=== PATIENT | male | born 2000 | race Caucasian/White ===

== ENCOUNTER 2022-11-29 19:06 | Emergency (ER) | payer SELFPAY ==
[2022-11-29 19:23] VITALS: BP 147/95; PULSE 112; RESP 14; TEMP 37.6; O2SAT 94; BMI 31.1
--- NOTE | 2022-11-29 20:11 | XR_ITS ---
PROCEDURE INFORMATION: Exam: XR Right Hand Exam date and time: 11/29/2022 8:06 PM Age: 22 years old Clinical indication: Pain; Hand; Right TECHNIQUE: Imaging protocol: Radiologic exam of the right hand. Views: 3 or more views. COMPARISON: No relevant prior studies available. FINDINGS: Bones/joints: No acute fracture or dislocation. Soft tissues: Normal. IMPRESSION: No acute fracture or dislocation.
--- NOTE | 2022-11-29 20:42 | HMH.EDGENADL ---
Discharge Plan Disposition Patient Disposition: Home, Self-Care Prescriptions Prescriptions: New diclofenac potassium 50 mg tablet 50 mg PO Q8H PRN (Reason: pain) Qty: 60 0RF Referrals Follow up/Referrals: Provider,Referral, [Primary Care Provider] - See instructions Activity Restrictions/Add. Instructions Additional Instructions/Restrictions: Follow-up with hand clinic call [phone] for appointment. [email or web address] Clinical Impressions Clinical Impression: Hand pain Discharge ED Provider: Jeremy Lam General Adult HPI General Chief complaint: PAIN Stated complaint: RT hand pain Time Seen by Provider: 11/29/22 20:00 Mode of Arrival: Ambulatory Source of Information: Patient and Relative Limitations: No Limitations Description of Symptoms (Recalled from ER Triage Doc. by RN): 22 yo male presents with complaints of chronic pain that has continued without ceasing since an old injury at [employer] several months ago . Story reported that his right hand was smashed between two objects that were metal, and he subsequently had to go to PT twice weekly for rehab following. Patient denies any surgery intervention. Patient is able to produce full AROM with his arm/hand without increasing or reproducing new pain. States he doesn't leave around here and was just staying with his relative and thought he would 'come in' for another eval. History of Present Illness HPI narrative: 22 yo M presents with 3 months of right hand pain, he smashed his right hand between 2 metal objects and then did PT but it is still hurting with movement of the hand. He is concerned something was missed No other injuries. Related Data Previous Rx's Medication Instructions Recorded diclofenac potassium 50 mg tablet 50 mg PO Q8H PRN pain #60 tabs 11/29/22 Allergies Allergy/AdvReac Type Severity Reaction Status Date / Time NO KNOWN ALLERGIES Allergy Uncoded 09/24/17 15:09 [facility] Disclaimer: The information contained in this section may have been updated after the patient was seen, as this information can be updated by other users. Social History Smoking Status: Never smoker alcohol intake: former current occupational status: employed Travel in the last 8 weeks: Inside the [place] ROS Obtained: Yes All systems reviewed & no additional complaints except as documented Constitutional Constitutional: Denies excessive sweating and Denies headache(s) ENT Ears, Nose, Mouth, and Throat: Denies dizziness, Denies headache(s) and Denies tongue swelling Cardiovascular Cardiovascular: Denies leg ulcers Respiratory Respiratory: Denies cough Gastrointestinal Gastrointestingal: Denies reflux Genitourinary Male Genitourinary: Denies flank pain Musculoskeletal Musculoskeletal: Denies joint swelling Integumentary/Breasts Skin/Breast: Denies redness and Denies furuncle Neurologic Neurologic: Denies dizziness and Denies headache(s) Endocrine Endocrine: Denies excessive sweating Allergic/Immunologic Allergic/Immunologic: Denies tongue swelling and Denies urticaria Physical Exam General General appearance: alert and in no apparent distress Eye Eye exam: Present PERRL and EOMI ENT ENT exam: Present normal exam and normal oropharynx Neck Neck exam: Present normal inspection Chest Chest inspection: Present symmetric chest wall rise Respiratory Respiratory exam: Present normal lung sounds bilaterally; Absent respiratory distress Cardiovascular Cardiovascular exam: Present regular rate and normal rhythm Abdominal Exam Abdominal exam: Present soft; Absent distention, tenderness, guarding, rebound, Justice's sign or tenderness at McBurney's Point Rectal Exam Rectal exam: Present deferred Extremities Exam Extremities exam: Present other (right hand mid hand tenderness, no swelling or deformity. 2 + pulses, N/v intact) Back Exam Back exam: Present normal inspection Neurological Exam Neurological
--- NOTE | 2022-11-29 21:51 | PC.NURSE ---
CALLED TO CHECK ON STATUS. SPOKE WITH ALEXI, STATED RADIOLOGIST IS JUST NOW GETTING TO IT.FAMILY AND PATIENT UPDATED
[2022-11-29 22:12] VITALS: BP 135/87; PULSE 90; RESP 16; TEMP 37.2; O2SAT 97
== END 2022-11-29 22:20 | disposition home or self-care (01) ==
PROVIDERS: Emergency Provider Student in an Organized Health Care Education/Training Program
DX: M79.641 Pain in right hand (principal); G89.29 Other chronic pain
CPT/HCPCS: 73130; 99283; 99284

== ENCOUNTER 2023-06-26 10:56 | Emergency (ER) | payer MEDICAID, SELFPAY ==
[2023-06-26 11:10] VITALS: BP 158/89; PULSE 100; RESP 18; TEMP 36.9; O2SAT 96; BMI 36.7
--- NOTE | 2023-06-26 11:23 | EXP.UTC ---
Discharge Plan Disposition Patient Disposition: Home, Self-Care Condition: Good Prescriptions Prescriptions: No Action diclofenac potassium 50 mg tablet 50 mg PO Q8H PRN (Reason: pain) Qty: 60 0RF Referrals Follow up/Referrals: Provider,Referral, MD [Primary Care Provider] - See instructions Activity Restrictions/Add. Instructions Additional Instructions/Restrictions: *Monitor Temp, Over the counter Motrin or Tylenol as directed/as needed Tylenol every 4 hours and Motrin every 6 hours (as long as your family doctor has told you that you can take it) for fever or pain. and straight to ER if unable to lower temp less than 101.0 after medication given *Warm salt water gargles may help to soothe the throat *Throat Lozenges? *Warm fluids like tea with honey may help to soothe the throat? *Sleep elevated Follow up IMMEDIATELY for new or worsening symptoms or no Noticeable improvement over the next 48-72 hours. 911 for difficulty breathing or swallowing You were tested for today for Upper Respiratory Panel with COVID19 your test result should be back in the next 24 you may check your results on the [facility] [employer] [facility] Portal if COVID positive you must then Quarantine at home for 5 days before returning to work or school Clinical Impressions Clinical Impression: Exposure to COVID-19 virus Stand Alone Forms Stand Alone Forms: Work/School Release Instructions Patient Instructions: COVID-19 Viral Test, DI for COVID-19 (Suspected or Confirmed ) Discharge ED Provider: Tri Kline [facility] HPI General Stated complaint: SOA,achey,weakness,cough Mode of Arrival: Ambulatory Source of Information: Patient Limitations: No Limitations Time Seen by Provider: 06/26/23 11:23 Description of Symptoms (Recalled from Triage Doc. by RN): exposed to covid HEENT Symptoms (Recalled from RN notes): Yes Resp Symptoms (Recalled from RN notes): No Skin Symptoms (Recalled from RN notes): No MS Symptoms (Recalled from RN notes): No Functional Status (Recalled from RN notes): n/a History of Present Illness Provider Complaint: Patient states that he was recently around someone that tested positive for COVID and he has been feeling achy and chilling so he wanted to get tested Related Data Previous Rx's Medication Instructions Recorded diclofenac potassium 50 mg tablet 50 mg PO Q8H PRN pain #60 tabs 11/29/22 Allergies Allergy/AdvReac Type Severity Reaction Status Date / Time NO KNOWN ALLERGIES Allergy Unknown Uncoded 06/26/23 11:23 Worker's Comp Is this a Worker's Comp case?: No [facility] Disclaimer: The information contained in this section may have been updated after the patient was seen, as this information can be updated by other users. Social History Smoking Status: Never smoker alcohol intake: former current occupational status: employed Travel in the last 8 weeks: Inside the [place] ROS Obtained: Yes All systems reviewed & no additional complaints except as documented and Yes Systems reviewed as appropriate & no additional complaints except as documented Constitutional Constitutional: Reports system reviewed and no additional complaints, except as documented, Reports as per HPI, Reports body ache and Reports chills ENT Ears, Nose, Mouth, and Throat: Reports system reviewed and no additional complaints, except as documented and Reports as per HPI Cardiovascular Cardiovascular: Reports system reviewed and no additional complaints, except as documented and Reports as per HPI Respiratory Respiratory: Reports system reviewed and no additional complaints, except as documented and Reports as per HPI Gastrointestinal Gastrointestingal: Reports system reviewed and no additional complaints, except as documented and as per HPI Physical Exam General General appearance: alert and in no apparent distress ENT ENT exam: Present mucou
[2023-06-26 11:39] VITALS: BP 141/70; PULSE 86; RESP 18; TEMP 36.6; O2SAT 95
== END 2023-06-26 11:39 | disposition home or self-care (01) ==
PROVIDERS: Emergency Provider Nurse Practitioner
DX: M79.18 Myalgia, other site (principal); Z20.822 Contact with and (suspected) exposure to COVID-19
CPT/HCPCS: 87635; 99203; 99212; G0463

== ENCOUNTER 2023-07-05 11:37 | Emergency (ER) | payer MEDICAID, SELFPAY ==
[2023-07-05 11:39] VITALS: BP 140/86; PULSE 101; RESP 16; TEMP 36.9; O2SAT 98; BMI 33.9
[2023-07-05 12:17] LABS: Coronavirus 19, PCR Not Detected (NotDetected); Influenza A, PCR Not Detected (NotDetected); Influenza B, PCR Not Detected (NotDetected)
[2023-07-05 12:25] VITALS: BP 124/88; PULSE 93; O2SAT 97
[2023-07-05 12:30] VITALS: BP 132/76; PULSE 86; O2SAT 96
--- NOTE | 2023-07-05 12:45 | HMH.EDGENADL ---
Discharge Plan Disposition Patient Disposition: Home, Self-Care Condition: Good Prescriptions Prescriptions: New ondansetron 4 mg tablet,disintegrating 4 mg PO Q8H PRN (Reason: nausea and vomiting) 4 Days Qty: 12 0RF No Action diclofenac potassium 50 mg tablet 50 mg PO Q8H PRN (Reason: pain) Qty: 60 0RF Referrals Follow up/Referrals: Damaris Mcclellan MD [Primary Care Provider] - See instructions Activity Restrictions/Add. Instructions Additional Instructions/Restrictions: You were evaluated in the emergency department today. Please slat pickler your prescription at the pharmacy to take as needed for nausea and vomiting. Take Tylenol and ibuprofen at home as needed for pain and fever. Hydrate is much as possible. Eat a bland diet until your symptoms have resolved. Return to the emergency department for any new or worsening symptoms. Clinical Impressions Clinical Impression: Acute viral syndrome, Gastroenteritis Stand Alone Forms Stand Alone Forms: Work/School Release Instructions Patient Instructions: DI for Viral Upper Respiratory Infection -- Adult, DI for Diarrhea and Traveler's Diarrhea -- Adult, DI for Nausea -- Adult Discharge ED Provider: Dorina Cummings General Adult HPI General Chief complaint: Nausea/Vomiting/Diarrhea Stated complaint: nausea, vomiting, diarrhea, sore throat, soa Time Seen by Provider: 07/05/23 11:52 Mode of Arrival: Ambulatory Source of Information: Patient Limitations: No Limitations Description of Symptoms (Recalled from ER Triage Doc. by RN): Patient reports N/V/D, sinus drainage and SOB for approx 2 days. History of Present Illness HPI narrative: This patient is a 23-year-old male with past medical history of asthma presenting to the emergency department for evaluation with concern for 2 days of sinus congestion, drainage, sore throat, cough, nausea, vomiting, and diarrhea. He reports that he has had a lot of trouble keeping anything down. The emesis is nonbloody and nonbilious and diarrhea is nonbloody. He denies any significant abdominal pain or other concerns. He does note dysuria on review of systems. Related Data Previous Rx's Medication Instructions Recorded diclofenac potassium 50 mg tablet 50 mg PO Q8H PRN pain #60 tabs 11/29/22 ondansetron 4 mg disintegrating 4 mg PO Q8H PRN nausea and 07/05/23 tablet vomiting 4 days #12 tabs Allergies Allergy/AdvReac Type Severity Reaction Status Date / Time NO KNOWN ALLERGIES Allergy Unknown Uncoded 06/26/23 11:23 [facility] Disclaimer: The information contained in this section may have been updated after the patient was seen, as this information can be updated by other users. Social History Smoking Status: Never smoker alcohol intake: former current occupational status: employed Travel in the last 8 weeks: [place] the [place] ROS Obtained: Yes All systems reviewed & no additional complaints except as documented Physical Exam General General appearance: alert and in no apparent distress Head Head exam: atraumatic and normocephalic Eye Eye exam: Present normal appearance, PERRL and EOMI ENT ENT exam: Present normal exam, normal oropharynx, mucous membranes moist and normal external ear exam Neck Neck exam: Present normal inspection, full ROM and trachea midline; Absent tenderness Chest Chest inspection: Present normal inspection and symmetric chest wall rise; Absent tenderness Respiratory Respiratory exam: Present normal lung sounds bilaterally; Absent respiratory distress, wheezes, stridor or accessory muscle use Cardiovascular Cardiovascular exam: Present regular rate and normal rhythm Abdominal Exam Abdominal exam: Present soft; Absent distention, tenderness or guarding Extremities Exam Extremities exam: Present normal inspection, full ROM and normal capillary refill; Absent tenderness or edema Back Exam Back exam: Present normal
[2023-07-05 12:51] LABS: Microscopic, Urine URINE MICROSCOPIC (MICROSCOPIC)
[2023-07-05 13:02] LABS: Appearance,Urine CLEAR (Clear); Bilirubin,Urine Negative (Negative); Blood, Urine Negative (Negative); Color,Urine YELLOW (Yellow); Glucose,Urine (UA) Negative (Negative); Ketones,Urine Negative (Negative); Leukocyte Esterase,Urine Negative (Negative); Nitrate,Urine Negative (Negative); Protein,Urine Negative (Negative); Specific Gravity, Urine 1.025 (1.005-1.030); Urobilinogen,Urine 0.2 EU/dl (0.2)
[2023-07-05 13:18] LABS: Bacteria,Urine Trace /lpf
[2023-07-05 13:45] VITALS: BP 132/76; PULSE 86; RESP 16; TEMP 36.9; O2SAT 96
== END 2023-07-05 13:47 | disposition home or self-care (01) ==
PROVIDERS: Emergency Provider Emergency Medicine; PCP Internal Medicine
DX: K52.9 Noninfective gastroenteritis and colitis, unspecified (principal); B34.9 Viral infection, unspecified; R06.02 Shortness of breath; J45.909 Unspecified asthma, uncomplicated
CPT/HCPCS: 81001; 87636; 99283

== ENCOUNTER 2023-09-06 16:37 | Emergency (ER) | payer MEDICAID, SELFPAY ==
[2023-09-06 16:40] VITALS: BP 153/93; PULSE 89; RESP 19; TEMP 36.9; O2SAT 98; BMI 35.2
--- NOTE | 2023-09-06 16:44 | XR_ITS ---
PROCEDURE INFORMATION: Exam: XR Chest Exam date and time: 09/06/2023 4:55 PM Age: 23 years old Clinical indication: Cough TECHNIQUE: Imaging protocol: Radiologic exam of the chest. Views: 1 view. COMPARISON: No relevant prior studies available. FINDINGS: Lungs: Unremarkable. No consolidation. Pleural spaces: Unremarkable. No pleural effusion. No pneumothorax. Heart/Mediastinum: Unremarkable. No cardiomegaly. Bones/joints: Unremarkable. IMPRESSION: No acute findings.
--- NOTE | 2023-09-06 16:44 | HMH.EDGENADL ---
Discharge Plan Disposition Patient Disposition: Home, Self-Care Condition: Good Prescriptions Prescriptions: New benzonatate 100 mg capsule 100 mg PO BID PRN (Reason: cough) 5 Days Qty: 10 0RF No Action diclofenac potassium 50 mg tablet 50 mg PO Q8H PRN (Reason: pain) Qty: 60 0RF ondansetron 4 mg tablet,disintegrating 4 mg PO Q8H PRN (Reason: nausea and vomiting) 4 Days Qty: 12 0RF Referrals Follow up/Referrals: Provider,Referral, MD [Primary Care Provider] - See instructions Clinical Impressions Clinical Impression: Acute viral syndrome Instructions Patient Instructions: DI for Viral Syndrome Discharge ED Provider: Cindy Chand General Adult HPI General Stated complaint: cough, sore throat Time Seen by Provider: 09/06/23 16:41 History of Present Illness HPI narrative: 23-year-old male with no significant past medical history who comes into the with complaints of cough and chest pain. Patient notes that since Saturday, he has been having a dry cough, sore throat, body aches, headaches. Patient notes that he is also congested and feels as if the congestion is deeper down in his lungs thus he cannot cough up anything. Patient denies any shortness of breath. Patient decided come into the ED due to persistent cough and lower chest pain. Patient denies any fevers, chills, nausea, vomiting. Related Data Previous Rx's Medication Instructions Recorded diclofenac potassium 50 mg tablet 50 mg PO Q8H PRN pain #60 tabs 11/29/22 ondansetron 4 mg disintegrating 4 mg PO Q8H PRN nausea and 07/05/23 tablet vomiting 4 days #12 tabs benzonatate 100 mg capsule 100 mg PO BID PRN cough 5 days #10 09/06/23 caps Allergies Allergy/AdvReac Type Severity Reaction Status Date / Time NO KNOWN ALLERGIES Allergy Unknown Uncoded 06/26/23 11:23 [facility] Disclaimer: The information contained in this section may have been updated after the patient was seen, as this information can be updated by other users. Social History Smoking Status: Never smoker alcohol intake: former current occupational status: employed Travel in the last 8 weeks: [place] the [place] ROS Obtained: Yes All systems reviewed & no additional complaints except as documented Physical Exam General General appearance: alert and in no apparent distress Head Head exam: atraumatic, normocephalic and normal inspection Eye Eye exam: Present normal appearance, PERRL and EOMI; Absent scleral icterus or nystagmus ENT ENT exam: Present normal exam, mucous membranes moist and normal external ear exam Neck Neck exam: Present normal inspection, full ROM and trachea midline Chest Chest inspection: Present normal inspection and symmetric chest wall rise; Absent tenderness Respiratory Respiratory exam: Present normal lung sounds bilaterally; Absent respiratory distress, wheezes or accessory muscle use Cardiovascular Cardiovascular exam: Present regular rate, normal rhythm and normal heart sounds Abdominal Exam Abdominal exam: Present soft; Absent distention, tenderness, guarding, rebound, rigidity, trauma, ascites or pulsatile mass exam: Present deferred Extremities Exam Extremities exam: Present normal inspection and full ROM; Absent tenderness Back Exam Back exam: Present normal inspection and full ROM; Absent tenderness Neurological Exam Neurological exam: Present alert, oriented X3, normal gait and motor sensory deficit Psychiatric Psychiatric exam: Present normal affect and normal mood Skin Skin exam: Present warm, dry and normal color Medical Decision Making Medical Records Medical records reviewed: Yes I reviewed the patient's medical records. Tl Inquiry Pt receiving controlled substance: No Lab Data Lab results reviewed: Yes I reviewed the patient's lab results. Lab Results 09/06/23 16:45: SARS-CoV-2 (PCR) Not detected, Influenza A Untype (PCR) Not d
[2023-09-06 16:51] LABS: Coronavirus 19, PCR Not Detected (NotDetected); Influenza A, PCR Not Detected (NotDetected); Influenza B, PCR Not Detected (NotDetected)
[2023-09-06 17:43] VITALS: BP 142/80; PULSE 89; RESP 16; TEMP 36.9; O2SAT 98
== END 2023-09-06 17:45 | disposition home or self-care (01) ==
PROVIDERS: Emergency Provider Emergency Medicine
DX: R07.9 Chest pain, unspecified (principal); R05.9 Cough, unspecified; J02.9 Acute pharyngitis, unspecified; B34.9 Viral infection, unspecified
CPT/HCPCS: 71045; 87636; 99284

== ENCOUNTER 2023-10-10 17:50 | Emergency (ER) | payer MEDICAID, SELFPAY ==
[2023-10-10 17:51] VITALS: BP 131/84; PULSE 80; RESP 18; TEMP 36.7; O2SAT 97; BMI 35.2
--- NOTE | 2023-10-10 18:08 | XR_ITS ---
PROCEDURE INFORMATION: Exam: XR Chest Exam date and time: 10/10/2023 6:07 PM Age: 23 years old Clinical indication: Cough TECHNIQUE: Imaging protocol: Radiologic exam of the chest. Views: 2 views. COMPARISON: CR XR CHEST PORTABLE 09/06/2023 4:55 PM FINDINGS: Lungs: No evidence of acute airspace consolidation. No pulmonary edema. Pleural spaces: No significant pleural effusion. No pneumothorax. Heart/Mediastinum: Cardiomediastinal silouhette is within normal limits. Bones/joints: No evidence of acute osseous abnormality. IMPRESSION: No acute findings.
--- NOTE | 2023-10-10 18:14 | HMH.EDGENADL ---
Discharge Plan Disposition Patient Disposition: Home, Self-Care Prescriptions Prescriptions: New benzonatate 100 mg capsule 100 mg PO TID PRN (Reason: cough) 5 Days Qty: 20 0RF ondansetron 4 mg tablet,disintegrating 4 mg PO Q6H PRN (Reason: nausea and vomiting) 5 Days Qty: 20 0RF No Action diclofenac potassium 50 mg tablet 50 mg PO Q8H PRN (Reason: pain) Qty: 60 0RF ondansetron 4 mg tablet,disintegrating 4 mg PO Q8H PRN (Reason: nausea and vomiting) 4 Days Qty: 12 0RF benzonatate 100 mg capsule 100 mg PO BID PRN (Reason: cough) 5 Days Qty: 10 0RF Referrals Follow up/Referrals: Damaris Mcclellan MD [Primary Care Provider] - See instructions Clinical Impressions Clinical Impression: Acute viral syndrome Stand Alone Forms Stand Alone Forms: Work/School Release Discharge ED Provider: Jeremy Lam General Adult HPI General Chief complaint: Upper Respiratory Infection Stated complaint: nausea, cog, SOA, vomiting. fever Time Seen by Provider: 10/10/23 18:04 Mode of Arrival: Ambulatory Source of Information: Patient Limitations: No Limitations Description of Symptoms (Recalled from ER Triage Doc. by RN): Patient reports fever, chest congestion and nausea starting yesterday. States he has vomited one time today. History of Present Illness HPI narrative: Patient is a 23-year-old male who was diagnosed with asthma as a child but has not had an asthma exacerbation for many years and is not on any controller medications presents today with multiple complaints. States has had congestion for several days starting at the beginning the week now has some cough some chest congestion little difficulty breathing and some chest pain associated with coughing. Denies any exertional chest pain radiation diaphoresis or any current symptoms. Also had some nausea and vomiting. No wheezing. Related Data Previous Rx's Medication Instructions Recorded diclofenac potassium 50 mg tablet 50 mg PO Q8H PRN pain #60 tabs 11/29/22 ondansetron 4 mg disintegrating 4 mg PO Q8H PRN nausea and 07/05/23 tablet vomiting 4 days #12 tabs benzonatate 100 mg capsule 100 mg PO BID PRN cough 5 days #10 09/06/23 caps benzonatate 100 mg capsule 100 mg PO TID PRN cough 5 days #20 10/10/23 caps ondansetron 4 mg disintegrating 4 mg PO Q6H PRN nausea and 10/10/23 tablet vomiting 5 days #20 tabs Allergies Allergy/AdvReac Type Severity Reaction Status Date / Time NO KNOWN ALLERGIES Allergy Unknown Uncoded 06/26/23 11:23 [facility] Disclaimer: The information contained in this section may have been updated after the patient was seen, as this information can be updated by other users. Social History Smoking Status: Never smoker alcohol intake: former current occupational status: employed Travel in the last 8 weeks: Inside the [place] ROS Obtained: Yes All systems reviewed & no additional complaints except as documented Physical Exam General General appearance: alert Respiratory Respiratory exam: Present normal lung sounds bilaterally; Absent respiratory distress or wheezes Cardiovascular Cardiovascular exam: Present regular rate and normal rhythm Neurological Exam Neurological exam: Present alert and oriented X3 Medical Decision Making Tl Inquiry Pt receiving controlled substance: No Vital Signs: 10/10/23 17:51 10/10/23 18:38 Temperature 98.1 F Temperature Source Oral Pulse Rate 89 Pulse Rate [Right] 80 Respiratory Rate 18 Blood Pressure 124/78 Blood Pressure [Right Arm] 131/84 Blood Pressure Mean [Right Arm] 99 Blood Pressure Source [Right Arm] Automatic Cuff 02 Sat by Pulse Oximetry 97 97 Oxygen Delivery Method Room Air Room Air Lab Data Lab results reviewed: Yes I reviewed the patient's lab results. Lab Results 10/10/23 17:55: SARS-CoV-2 (PCR) Not detected, Influenza A Untype (PCR) Not detected, Influenza Type B (PCR) Not detected Orders (Tests/Meds): ED MEDICATIONS Discontinued Medications Generic Name Dose Route Start Last Admin Trade Name Freq PRN Reason Stop Dose Admin Ibuprofen 800 mg 10/10/23 18:09 10/10/23 18:16 Ibuprofen 400 Mg Tablet PO 10/10/23 18:10 800 mg ONCE ONE Administration Ondansetron HCl 4 mg 10/10/23 18:08 10/10/23 18:16 Ondansetron 4mg Odt SL 10/10/23 18:09 4 mg ONCE ONE Administration ORDERS Category Date Time Status XR chest 2V Stat Exams 10/10/23 18:08 Completed Rapid PCR Covid and Flu A/B Stat Lab 10/10/23 17:55 Completed Medical Decision Narrative: Very well-appearing 23-year-old male with above history and physical completely benign and objectively normal physical exam. This is consistent with a viral syndrome we will check for COVID and flu. Given the fact that he is having similar chest discomfort with coughing we will get a chest x-ray to make sure he does not have an underlying pneumonia. This is not consistent with myocarditis acute coronary syndrome acute myocardial injury etc. Will hold off on labs for the time being. He took DayQuil earlier today and will give him ibuprofen and Zofran and reassess. Reassessment 7:56 PM patient feeling significantly better chest x-ray performed which I personally interpreted which shows no acute cardiopulmonary emergency. COVID and flu are negative. This is consistent with alternative viral etiology. Zofran and benzonatate were prescribed to his pharmacy return precautions discussed he was discharged in improved and stable condition. Critical Care Critical Care Time Critical Care Time: No
[2023-10-10] MEDS: IBUPROFEN 400 MG TABLET 800 MG PO (18:16)
[2023-10-10] MEDS: ONDANSETRON 4MG ODT 4 MG SL (18:16)
--- NOTE | 2023-10-10 18:16 | PC.NURSE ---
Patient to RAD
[2023-10-10 18:38] VITALS: BP 124/78; PULSE 89; O2SAT 97
[2023-10-10 19:16] LABS: Coronavirus 19, PCR Not Detected (NotDetected); Influenza A, PCR Not Detected (NotDetected); Influenza B, PCR Not Detected (NotDetected)
[2023-10-10 20:00] VITALS: BP 137/78; PULSE 77; RESP 18; TEMP 36.7
== END 2023-10-10 20:02 | disposition home or self-care (01) ==
PROVIDERS: Emergency Provider Student in an Organized Health Care Education/Training Program; PCP Internal Medicine
DX: R50.9 Fever, unspecified (principal); R11.0 Nausea; B34.9 Viral infection, unspecified
CPT/HCPCS: 71046; 87636; 99283

== ENCOUNTER 2024-01-13 13:01 | Emergency (ER) | payer MEDICAID, SELFPAY ==
[2024-01-13 13:02] VITALS: BP 145/97; PULSE 101; RESP 18; TEMP 36.9; O2SAT 100; BMI 35.2
[2024-01-13 13:11] VITALS: BP 145/97; PULSE 98; O2SAT 98
--- NOTE | 2024-01-13 13:16 | XR_ITS ---
FINAL REPORT CLINICAL HISTORY: soa FINDINGS: A single portable view of the chest was obtained. The heart size and pulmonary vascularity are within normal limits. The mediastinum is within normal limits. No acute pulmonary abnormality is identified. The bony thorax is intact. IMPRESSION: No active cardiopulmonary disease. Reviewed, Interpreted and Dictated by Deep Kinsey III, MD Transcribed by Evelina Phillip Authenticated and . [facility]
--- NOTE | 2024-01-13 13:18 | ED_ITS ---
Discharge Plan Disposition Patient Disposition: Home, Self-Care Condition: Good Prescriptions Prescriptions: New ondansetron 4 mg tablet,disintegrating 4 mg PO Q8H PRN (Reason: nausea and vomiting) 4 Days Qty: 12 0RF amoxicillin 875 mg tablet 875 mg PO BID 10 Days Qty: 20 0RF No Action diclofenac potassium 50 mg tablet 50 mg PO Q8H PRN (Reason: pain) Qty: 60 0RF ondansetron 4 mg tablet,disintegrating 4 mg PO Q8H PRN (Reason: nausea and vomiting) 4 Days Qty: 12 0RF benzonatate 100 mg capsule 100 mg PO BID PRN (Reason: cough) 5 Days Qty: 10 0RF benzonatate 100 mg capsule 100 mg PO TID PRN (Reason: cough) 5 Days Qty: 20 0RF ondansetron 4 mg tablet,disintegrating 4 mg PO Q6H PRN (Reason: nausea and vomiting) 5 Days Qty: 20 0RF Referrals Follow up/Referrals: Provider,Referral, MD [Referring] - See instructions Activity Restrictions/Add. Instructions Additional Instructions/Restrictions: You were seen in the ED today due to COVID-19. You also have an ear infection. Please take antibiotics as prescribed. Prescription for Zofran for nausea has been provided. Take Tylenol and ibuprofen at home for fever or pain. Follow-up with your primary care provider. Return to the ED if symptoms worsen or if new concerning symptoms arise. Thank you. Clinical Impressions Clinical Impression: COVID-19 Otitis media Qualifiers: Otitis media type: suppurative Chronicity: acute Laterality: left Recurrence: n on-recurrent Spontaneous tympanic membrane rupture: without spontaneous rupture Qualified Code(s): H66.002 - Acute suppurative otitis media without spontaneous rupture of ear drum, left ear Instructions Patient Instructions: Middle Ear Infection, DI for COVID-19 (Suspected or Confirmed ) Discharge ED Provider: Gadiel Gallegos General Adult HPI General Chief complaint: Upper Respiratory Infection Stated complaint: abd pain, congestion Time Seen by Provider: 01/13/24 13:11 Mode of Arrival: Ambulatory Source of Information: Patient Limitations: No Limitations Description of Symptoms (Recalled from ER Triage Doc. by RN): PATIENT STATES HE STARTED FEELING BAD YESTERDAY WITH NAUSEA, CONGESTION, AND LIGHTHEADED. DENIES VOMITING, DIARRHEA, OR FEVERS. History of Present Illness HPI narrative: Patient is an otherwise healthy 23-year-old male presenting due to congestion, nausea, cough. Patient's aunt is present to provide history. Patient reports symptoms began yesterday. States he has had sinus drainage, sore throat, nausea and nonproductive cough. Denies any chest pain, abdominal pain, vomiting. States he did have subjective fevers yesterday. Denies any body aches or joint pain. States he has been getting lightheaded when he stands for more than 15 to 20 minutes at a time. He is unsure of any sick contacts. Related Data Previous Rx's Medication Instructions Recorded diclofenac potassium 50 mg tablet 50 mg PO Q8H PRN pain #60 tabs 11/29/22 ondansetron 4 mg disintegrating 4 mg PO Q8H PRN nausea and 07/05/23 tablet vomiting 4 days #12 tabs benzonatate 100 mg capsule 100 mg PO BID PRN cough 5 days #10 09/06/23 caps benzonatate 100 mg capsule 100 mg PO TID PRN cough 5 days #20 10/10/23 caps ondansetron 4 mg disintegrating 4 mg PO Q6H PRN nausea and 10/10/23 tablet vomiting 5 days #20 tabs amoxicillin 875 mg tablet 875 mg PO BID 10 days #20 tabs 01/13/24 ondansetron 4 mg disintegrating 4 mg PO Q8H PRN nausea and 01/13/24 tablet vomiting 4 days #12 tabs Allergies Allergy/AdvReac Type Severity Reaction Status Date / Time No Known Drug Allergies AdvReac Unknown Verified 10/24/23 14:16 allergy reaction [facility] Disclaimer: The information contained in this section may have been updated after the patient was seen, as this information can be updated by other users. Social History Smoking Status: Never smoker alcohol intake: former current occupational status: employed Travel in the last 8 weeks: Inside the [place] ROS Obtained: Yes All systems reviewed & no additional complaints except as documented Constitutional Constitutional: Reports fatigue and Reports fever(s) ENT Ears, Nose, Mouth, and Throat: Reports nasal discharge, Reports sinus pressure and Reports sore throat Respiratory Respiratory: Reports shortness of breath and Reports non-productive cough Gastrointestinal Gastrointestingal: Reports nausea Endocrine Endocrine: Reports fatigue Physical Exam General General appearance: alert and in no apparent distress Head Head exam: atraumatic, normocephalic and normal inspection Eye Eye exam: Present normal appearance, PERRL and EOMI ENT ENT exam: Present normal exam, mucous membranes moist, normal external ear exam and other (Posterior oropharyngeal erythema, edema, exudate.); Absent normal oropharynx or TM's normal bilaterally (Left TM purulent effusion, bulging, erythema.) Neck Neck exam: Present normal inspection, full ROM, trachea midline and other (Tender cervical lymphadenopathy.); Absent meningismus or lymphadenopathy Chest Chest inspection: Present normal inspection and symmetric chest wall rise; Absent tenderness Respiratory Respiratory exam: Present normal lung sounds bilaterally; Absent respiratory distress Cardiovascular Cardiovascular exam: Present regular rate and normal rhythm; Absent JVD Abdominal Exam Abdominal exam: Present soft and normal bowel sounds; Absent distention, tenderness or guarding Extremities Exam Extremities exam: Present normal inspection, full ROM and normal capillary refill; Absent calf tenderness Back Exam Back exam: Present normal inspection; Absent tenderness Neurological Exam Neurological exam: Present alert and oriented X3 Psychiatric Psychiatric exam: Present normal affect and normal mood Skin Skin exam: Present warm, dry, intact and normal color Lymphatic Lymphatic Findings: no adenopathy Medical Decision Making Tl Inquiry Pt receiving controlled substance: No Vital Signs: 01/13/24 13:02 Temperature 98.5 F Temperature Source Oral Pulse Rate [Right] 101 H Respiratory Rate 18 Blood Pressure [Right Arm] 145/97 H Blood Pressure Mean [Right Arm] 113 Blood Pressure Source [Right Arm] Automatic Cuff 02 Sat by Pulse Oximetry 100 Oxygen Delivery Method Room Air Lab Data Lab Results 01/13/24 13:16: Sodium 140, Potassium 3.8, Chloride 101, Carbon Dioxide 32 H, Anion Gap 10.8, BUN 9, Creatinine 0.90, Estimated Creat Clear 215, Estimated GFR 106, Est GFR ( Amer) 128, Glucose 96, Calcium 9.7, Total Bilirubin 1.0, AST 32, ALT 26, Alkaline Phosphatase 65, Total Protein 8.0, Albumin 4.8, Globulin 3.2, Albumin/Globulin Ratio 1.5, Lipase 82, SARS-CoV-2 (PCR) Detected A , Influenza A Untype (PCR) Not detected, Influenza Type B (PCR) Not detected 01/13/24 13:28: WBC 6.6, RBC 5.69, Hgb 15.8, Hct 48.4, MCV 85.1, MCH 27.8, MCHC 32.6, RDW 13.4, Plt Count 284, MPV 8.3, Neut % (Auto) 59.2, Lymph % (Auto) 20.6, [place] % (Auto) 17.2 H, Eos % (Auto) 0.3, Baso % (Auto) 2.8 H, Neut # (Auto) 3.9, Lymph # (Auto) 1.4, [place] # (Auto) 1.1 H, Eos # (Auto) 0.0, Baso # (Auto) 0.2, Group A Strep Rapid Negative 01/13/24 13:28 01/13/24 13:16 Orders (Tests/Meds): ED MEDICATIONS Discontinued Medications Generic Name Dose Route Start Last Admin Trade Name Freq PRN Reason Stop Dose Admin Lactated Ringer's 1,000 mls @ 999 mls/hr 01/13/24 13:16 01/13/24 13:37 Lactated Ringer's 1000 Ml Bag IV 01/13/24 14:16 999 mls/hr .Q1H1M ONE Administration Ketorolac Tromethamine 15 mg 01/13/24 13:16 01/13/24 13:37 Ketorolac 30mg/Ml Vial IV 01/13/24 13:17 15 mg ONCE ONE Administration Ondansetron HCl 4 mg 01/13/24 13:16 01/13/24 13:37 Ondansetron 4mg/2ml Vial IV 01/13/24 13:17 4 mg ONCE ONE Administration ORDERS Category Date Time Status CXR --portable [XR chest portable] Stat Exams 01/13/24 13:16 Taken CBC w/Auto Diff [Complete Blood Count Auto Diff] Stat Lab 01/13/24 13:28 Completed CMP [Comprehensive Metabolic Panel] Stat Lab 01/13/24 13:16 Completed Lipase Stat Lab 01/13/24 13:16 Completed Rapid PCR Covid and Flu A/B Stat Lab 01/13/24 13:16 Completed Rapid Strep Scrn Group A [Strep Scrn Group A (Rapid)] Lab 01/13/24 13:28 Completed Stat Strep Screen Confirmation Stat Micro 01/13/24 13:28 Received ECG Data Tracing #1: I reviewed this ECG and interpreted as documented below: EKG obtained and interpreted by me demonstrating normal sinus rhythm with sinus arrhythmia, appropriate axis and intervals, no signs of acute ischemia. Medical Decision Narrative: In summary, patient is otherwise healthy 23-year-old male, evaluated in the emergency department today due to lightheadedness, congestion, nausea, cough, sore throat. On arrival, patient is hypertensive, slightly tachycardic but hemodynamically stable, otherwise normal vital signs. On examination, patient has posterior oropharyngeal erythema/edema/exudate, left TM effusion. Differential diagnosis includes but is not limited to viral infection, otitis media, strep pharyngitis. Patient given 1 L LR bolus, IV Zofran. Workup initiated including CBC, CMP, lipase, COVID/flu, strep screen, CXR. Labs independently interpreted by me and significant for positive COVID-19. Imaging independently interpreted by me and significant for CXR showing no pneumonia, otherwise no acute findings. On reevaluation, patient is resting comfortably in no distress. He is appropriate for discharge at this time. Prescription for amoxicillin for otitis media provided. Prescription for Zofran for nausea provided. Patient counseled on home care, given strict return precautions and agreeable to plan. Additional history was provided by family. I considered the utility of treatment with antiviral medication, but decided against this because it would be of little benefit. I considered admitting the patient to the hospital for observation, and in shared decision-making with patient, decided on outpatient care. Critical Care Critical Care Time Critical Care Time: No
[2024-01-13] MEDS: LACTATED RINGERS 1000ML 1,000 ML 999 ML IV (13:37)
[2024-01-13] MEDS: KETOROLAC 30MG/ML VIAL 15 MG IV (13:37)
[2024-01-13] MEDS: ONDANSETRON 4MG/2ML VIAL 4 MG IV (13:37)
[2024-01-13 13:42] LABS: Influenza A, PCR Not Detected (NotDetected); Influenza B, PCR Not Detected (NotDetected)
[2024-01-13 13:46] LABS: Basophils # 0.2 K/mm3 (0-0.2); Basophils % 2.8 % (0.1-2.0); Eosinophils % 0.3 % (0.1-12.0); Hematocrit 48.4 % (42.0-52.0); Hemoglobin 15.8 g/dL (14.1-18.0); Lymphocytes # 1.4 K/mm3 (0.7-4.5); Lymphocytes % 20.6 % (10-50); Mean Corpuscular HGB Conc 32.6 g/dL (31.8-35.4); Mean Corpuscular Hemoglobin 27.8 pg (27.0-31.2); Mean Corpuscular Volume 85.1 fl (80-94); Mean Platelet Volume 8.3 fl (7.4-10.4); Monocytes # 1.1 K/mm3 (0.1-1.0); Monocytes % 17.2 % (1.7-9.3); Neutrophils # 3.9 K/mm3 (1.8-7.8); Neutrophils % 59.2 % (37.0-80.0); Platelet Count 284 K/mm3 (142-424); Red Blood Count 5.69 M/mm3 (4.60-6.20); Red Cell Distribution Width 13.4 % (11.5-17.5); White Blood Count 6.6 K/mm3 (4.8-10.8)
--- NOTE | 2024-01-13 13:50 | ECG_ITS ---
APPROVED REPORT Exam: Resting ECG HR:84 bpm ECG Measurements Heart Rate 84 AXES NV 140 P 61 QRSd 95 QRS 72 QT 332 T 48 QTc 373 Conclusion SINUS RHYTHM WITH SINUS ARRHYTHMIA NORMAL ECG UNCONFIRMED REPORT Electronically signed by : Lazaro Lam, 01/13/2024 17:37:13
[2024-01-13 13:51] LABS: Strep Scrn Group A (Rapid) Negative (Negative)
[2024-01-13 14:00] VITALS: BP 132/82; PULSE 84; O2SAT 96
[2024-01-13 14:05] LABS: Chloride 101 mmol/L (98-107); Potassium 3.8 mmoL/L (3.5-5.1); Sodium 140 mmol/L (136-145)
[2024-01-13 14:08] LABS: Alanine Aminotransferase 26 U/L (12-78); Albumin Level 4.8 g/dl (3.5-5.0); Albumin/Globulin Ratio 1.5 (1.1-1.8); Alkaline Phosphatase 65 U/L (38-126); Anion Gap 10.8 mEq/L (5-15); Aspartate Amino Transferase 32 U/L (17-59); Blood Urea Nitrogen 9 mg/dl (9-20); Calcium 9.7 mg/dl (8.4-10.2); Carbon Dioxide 32 mmol/L (22.0-30.0); Creatinine Clearance Estimated 215 mL/min (50-200); Estimated Glomerular Filt Rate 106 ml/min (>60); GFR (African American) 128 ML/MIN (>60); Globulin 3.2 g/dL (1.3-3.2); Glucose 96 mg/dl (74-100); Lipase 82 U/L (23-300)
[2024-01-13 14:13] LABS: Coronavirus 19, PCR Detected (NotDetected)
--- NOTE | 2024-01-13 14:21 | PC.NURSE ---
rounded on pt, he is feeling better. Just awaiting for IVF to complete. Family at bedside updated on results, ok'ed by pt.
[2024-01-13 14:30] VITALS: BP 123/86; PULSE 80; O2SAT 98
--- NOTE | 2024-01-13 14:45 | PC.NURSE ---
fluid almost complete. Gave pt water.
[2024-01-13 14:49] VITALS: BP 123/86; PULSE 85; RESP 18; TEMP 36.9; O2SAT 98
--- NOTE | 2024-01-17 08:48 | PC.NURSE ---
reviewed throat culture with , pt dc with amoxicillin, NTD
== END 2024-01-13 14:53 | disposition home or self-care (01) ==
PROVIDERS: Emergency Provider Student in an Organized Health Care Education/Training Program; PCP Nurse Practitioner Family
DX: U07.1 COVID-19 (principal); I49.9 Cardiac arrhythmia, unspecified; H66.002 Acute suppurative otitis media without spontaneous rupture of ear drum, left ear; R05.9 Cough, unspecified; R09.81 Nasal congestion; R11.0 Nausea
CPT/HCPCS: 71045; 80053; 83690; 85025; 87430; 87636; 93005; 96361; 96374; 96375; 99284; J2405

== ENCOUNTER 2024-02-24 12:38 | Emergency (ER) | payer MEDICAID, SELFPAY ==
[2024-02-24 12:39] VITALS: BP 147/86; PULSE 95; RESP 18; TEMP 36.9; O2SAT 98; BMI 35.2
--- NOTE | 2024-02-24 12:53 | [facility].EDGENADL ---
Discharge Plan Disposition Patient Disposition: Home, Self-Care Prescriptions Prescriptions: New amoxicillin 875 mg tablet 875 mg PO BID 10 Days Qty: 20 0RF meclizine 25 mg tablet 25 mg PO TID PRN (Reason: dizziness) Qty: 20 0RF prednisone 50 mg tablet 50 mg PO DAILY 5 Days Qty: 5 0RF Rx Instructions: Please begin 1 day after ED visit ondansetron 4 mg tablet,disintegrating 4 mg PO Q6H PRN (Reason: nausea and vomiting) 5 Days Qty: 20 0RF oxymetazoline 0.05 % spray,non-aerosol 2 spray intranasal BID PRN (Reason: nasal congestion) 3 Days Qty: 22 0RF No Action diclofenac potassium 50 mg tablet 50 mg PO Q8H PRN (Reason: pain) Qty: 60 0RF ondansetron 4 mg tablet,disintegrating 4 mg PO Q8H PRN (Reason: nausea and vomiting) 4 Days Qty: 12 0RF benzonatate 100 mg capsule 100 mg PO BID PRN (Reason: cough) 5 Days Qty: 10 0RF benzonatate 100 mg capsule 100 mg PO TID PRN (Reason: cough) 5 Days Qty: 20 0RF ondansetron 4 mg tablet,disintegrating 4 mg PO Q6H PRN (Reason: nausea and vomiting) 5 Days Qty: 20 0RF ondansetron 4 mg tablet,disintegrating 4 mg PO Q8H PRN (Reason: nausea and vomiting) 4 Days Qty: 12 0RF amoxicillin 875 mg tablet 875 mg PO BID 10 Days Qty: 20 0RF Referrals Follow up/Referrals: Hugo Lieberman MD [Physician] - See instructions Damaris Mcclellan MD [Primary Care Provider] - See instructions Activity Restrictions/Add. Instructions Additional Instructions/Restrictions: Your clinical symptoms and physical exam are consistent with a middle ear infection and associated effusion. Please take antibiotics steroids and decongestions as instructed. You also have some vertigo which appears to be peripheral and consistent with your middle ear infection. Not improving in 1 to 2 weeks she may follow-up with ear nose and throat and a referral has been made. Clinical Impressions Clinical Impression: Otitis media, Middle ear effusion, Peripheral vertigo, Nausea Discharge ED Provider: Jeremy Lam General Adult HPI General Stated complaint: nausea and dizziness Time Seen by Provider: 02/24/24 12:42 History of Present Illness HPI narrative: Patient is a 24-year-old male previously healthy presenting today with ear pain fullness and dizziness with any type of movement of his head with associated nausea. No fevers or chills or preceding upper respiratory infections. States he had an ear infection around COVID which felt very similar. Related Data Previous Rx's Medication Instructions Recorded diclofenac potassium 50 mg tablet 50 mg PO Q8H PRN pain #60 tabs 11/29/22 ondansetron 4 mg disintegrating 4 mg PO Q8H PRN nausea and 07/05/23 tablet vomiting 4 days #12 tabs benzonatate 100 mg capsule 100 mg PO BID PRN cough 5 days #10 09/06/23 caps benzonatate 100 mg capsule 100 mg PO TID PRN cough 5 days #20 10/10/23 caps ondansetron 4 mg disintegrating 4 mg PO Q6H PRN nausea and 10/10/23 tablet vomiting 5 days #20 tabs amoxicillin 875 mg tablet 875 mg PO BID 10 days #20 tabs 01/13/24 ondansetron 4 mg disintegrating 4 mg PO Q8H PRN nausea and 01/13/24 tablet vomiting 4 days #12 tabs amoxicillin 875 mg tablet 875 mg PO BID 10 days #20 tabs 02/24/24 meclizine 25 mg tablet 25 mg PO TID PRN dizziness #20 tabs 02/24/24 ondansetron 4 mg disintegrating 4 mg PO Q6H PRN nausea and 02/24/24 tablet vomiting 5 days #20 tabs oxymetazoline 0.05 % nasal spray 2 spray intranasal BID PRN nasal 02/24/24 congestion 3 days #22 mL prednisone 50 mg tablet 50 mg PO DAILY 5 days #5 tabs 02/24/24 Allergies Allergy/AdvReac Type Severity Reaction Status Date / Time No Known Drug Allergies AdvReac Unknown Verified 10/24/23 14:16 allergy reaction [facility] Disclaimer: The information contained in this section may have been updated after the patient was seen, as this information can be updated by other users. Social History Smoking Status: Never smoker alcohol intake: former current occupational status: employed Travel in the last 8 weeks: Inside the [place] ROS Obtained: Yes All systems reviewed & no additional complaints except as documented Physical Exam General General appearance: alert and in no apparent distress ENT ENT exam: Present other (Bulging right tympanic membrane but clear without any significant erythema or opacification left tympanic membrane is normal) Respiratory Respiratory exam: Present normal lung sounds bilaterally; Absent respiratory distress Cardiovascular Cardiovascular exam: Present regular rate and normal rhythm Neurological Exam Neurological exam: Present alert and oriented X3 Medical Decision Making Tl Inquiry Pt receiving controlled substance: No Medical Decision Narrative: 24-year-old normal neurologic exam presents today with peripheral vertigo middle ear effusion with some ear pain consistent with otitis media and associated ear effusion and vertiginous symptoms from this. May have labyrinthitis. Not concerned about a central cause of his vertiginous symptoms. Will treat this as a bacterial infection also will give steroids and advised that he take oxymetazoline. Meclizine and Zofran have been given as needed for nausea. ENT referral has been made in the event that he is not improving in 1 to 2 weeks. Patient was discharged in stable condition. Critical Care Critical Care Time Critical Care Time: No
[2024-02-24 12:59] VITALS: BP 146/87; PULSE 95; RESP 18; TEMP 36.9; O2SAT 98
== END 2024-02-24 13:01 | disposition home or self-care (01) ==
PROVIDERS: Emergency Provider Student in an Organized Health Care Education/Training Program; PCP Internal Medicine
DX: H65.191 Other acute nonsuppurative otitis media, right ear (principal); R42 Dizziness and giddiness; R11.0 Nausea
CPT/HCPCS: 99283

== ENCOUNTER 2024-03-26 13:50 | Emergency (ER) | payer MEDICAID, SELFPAY ==
[2024-03-26 13:52] VITALS: BP 141/83; PULSE 76; RESP 16; TEMP 36.4; O2SAT 97; BMI 34.3
--- NOTE | 2024-03-26 14:03 | ED_ITS ---
<Statement entered by Ulises Coombs MD - 03/26/24 15:43> I was consulted by the JOEY, and we discussed the complexity of the problems being addressed. I approved the treatment and management plan for this patient's care in the emergency department, thus performing a substantive portion of the medical decision making. Ulises Coombs MD Discharge Plan Disposition Patient Disposition: Home, Self-Care Condition: Good Prescriptions Prescriptions: New prednisone 50 mg tablet 50 mg PO DAILY 5 Days Qty: 5 0RF albuterol sulfate 90 mcg/actuation HFA aerosol inhaler 1 inh inhalation Q4H PRN (Reason: shortness of breath or wheezing) Qty: 8.5 0RF No Action diclofenac potassium 50 mg tablet 50 mg PO Q8H PRN (Reason: pain) Qty: 60 0RF ondansetron 4 mg tablet,disintegrating 4 mg PO Q8H PRN (Reason: nausea and vomiting) 4 Days Qty: 12 0RF benzonatate 100 mg capsule 100 mg PO BID PRN (Reason: cough) 5 Days Qty: 10 0RF amoxicillin 875 mg tablet 875 mg PO BID 10 Days Qty: 20 0RF meclizine 25 mg tablet 25 mg PO TID PRN (Reason: dizziness) Qty: 20 0RF prednisone 50 mg tablet 50 mg PO DAILY 5 Days Qty: 5 0RF Rx Instructions: Please begin 1 day after ED visit ondansetron 4 mg tablet,disintegrating 4 mg PO Q6H PRN (Reason: nausea and vomiting) 5 Days Qty: 20 0RF oxymetazoline 0.05 % spray,non-aerosol 2 spray intranasal BID PRN (Reason: nasal congestion) 3 Days Qty: 22 0RF benzonatate 100 mg capsule 100 mg PO TID PRN (Reason: cough) 5 Days Qty: 20 0RF ondansetron 4 mg tablet,disintegrating 4 mg PO Q6H PRN (Reason: nausea and vomiting) 5 Days Qty: 20 0RF ondansetron 4 mg tablet,disintegrating 4 mg PO Q8H PRN (Reason: nausea and vomiting) 4 Days Qty: 12 0RF amoxicillin 875 mg tablet 875 mg PO BID 10 Days Qty: 20 0RF Referrals Follow up/Referrals: Damaris Mcclellan MD [Primary Care Provider] - See instructions Activity Restrictions/Add. Instructions Additional Instructions/Restrictions: ImmediateWe did not find any serious or life-threatening conditions today. Your swabs were negative for strep COVID and flu. I have prescribed steroids and dose inhaler. Please follow-up with your PCP for reassessment for any worsening signs or symptoms or return to ER as needed Clinical Impressions Clinical Impression: Upper respiratory infection Qualifiers: URI type: acute pharyngitis Pharyngitis/tonsillitis etiology: unspecified etiology Qualified Code(s): J02.9 - Acute pharyngitis, unspecified RAD (reactive airway disease) Qualifiers: Asthma severity: mild Asthma persistence: unspecified Qualified Code(s): J45.909 - Unspecified asthma, uncomplicated Instructions Patient Instructions: DI for Viral Upper Respiratory Infection -- Adult Discharge ED Provider: Ulises Coombs General Adult HPI General Chief complaint: Upper Respiratory Infection Stated complaint: sore throat cough sinus pressure Time Seen by Provider: 03/26/24 14:00 History of Present Illness HPI narrative: Patient presents for cough sore throat sinus pressure and reports that his lungs feel tight . Patient does not have a current diagnosis of asthma but was treated as such as a child. Symptoms have been going on for 5 days. He denies chest pain chills hemoptysis hematochezia melena hematemesis hematuria nausea vomiting diarrhea. Related Data Previous Rx's Medication Instructions Recorded diclofenac potassium 50 mg tablet 50 mg PO Q8H PRN pain #60 tabs 11/29/22 ondansetron 4 mg disintegrating 4 mg PO Q8H PRN nausea and 07/05/23 tablet vomiting 4 days #12 tabs benzonatate 100 mg capsule 100 mg PO BID PRN cough 5 days #10 09/06/23 caps benzonatate 100 mg capsule 100 mg PO TID PRN cough 5 days #20 10/10/23 caps ondansetron 4 mg disintegrating 4 mg PO Q6H PRN nausea and 10/10/23 tablet vomiting 5 days #20 tabs amoxicillin 875 mg tablet 875 mg PO BID 10 days #20 tabs 01/13/24 ondansetron 4 mg disintegrating 4 mg PO Q8H PRN nausea and 01/13/24 tablet vomiting 4 days #12 tabs amoxicillin 875 mg tablet 875 mg PO BID 10 days #20 tabs 05/20/24 meclizine 25 mg tablet 25 mg PO TID PRN dizziness #20 tabs 02/24/24 ondansetron 4 mg disintegrating 4 mg PO Q6H PRN nausea and 02/24/24 tablet vomiting 5 days #20 tabs oxymetazoline 0.05 % nasal spray 2 spray intranasal BID PRN nasal 02/24/24 congestion 3 days #22 mL prednisone 50 mg tablet 50 mg PO DAILY 5 days #5 tabs 02/24/24 albuterol sulfate 90 mcg/actuation 1 inh inhalation Q4H PRN shortness 03/26/24 aerosol inhaler of breath or wheezing #8.5 grams prednisone 50 mg tablet 50 mg PO DAILY 5 days #5 tabs 03/26/24 Allergies Allergy/AdvReac Type Severity Reaction Status Date / Time No Known Drug Allergies AdvReac Unknown Verified 10/24/23 14:16 allergy reaction [facility] Disclaimer: The information contained in this section may have been updated after the patient was seen, as this information can be updated by other users. Social History Smoking Status: Never smoker alcohol intake: former current occupational status: employed Travel in the last 8 weeks: Inside the [place] ROS Obtained: Yes Systems reviewed as appropriate & no additional complaints except as documented Physical Exam General General appearance: alert and in no apparent distress ENT ENT exam: Present normal exam, normal oropharynx, mucous membranes moist and other (Patient has tonsillar hyperplasia but no exudate) Neck Neck exam: Present normal inspection, full ROM and trachea midline; Absent tenderness or lymphadenopathy Chest Chest inspection: Present normal inspection and symmetric chest wall rise Respiratory Respiratory exam: Present normal lung sounds bilaterally; Absent respiratory distress, wheezes, stridor or accessory muscle use Cardiovascular Cardiovascular exam: Present regular rate, normal rhythm and normal heart sounds Abdominal Exam Abdominal exam: Present soft and normal bowel sounds; Absent tenderness Extremities Exam Extremities exam: Present normal inspection and full ROM Back Exam Back exam: Present normal inspection and full ROM Neurological Exam Neurological exam: Present alert and oriented X3 Psychiatric Psychiatric exam: Present normal affect and normal mood Skin Skin exam: Present warm, normal color and diaphoresis Medical Decision Making Medical Records Medical records reviewed: Yes I reviewed the patient's medical records. Tl Inquiry Pt receiving controlled substance: No Vital Signs: 03/26/24 13:52 03/26/24 14:32 Temperature 97.6 F Temperature Source Oral Pulse Rate 80 Pulse Rate [Radial] 76 Respiratory Rate 16 17 Blood Pressure 126/72 Blood Pressure [Right Arm] 141/83 H Blood Pressure Mean [Right Arm] 102 Blood Pressure Source [Right Arm] Automatic Cuff Blood Pressure Position [Right Arm] Sitting 02 Sat by Pulse Oximetry 97 98 Oxygen Delivery Method Room Air Room Air Lab Data Lab results reviewed: Yes I reviewed the patient's lab results. Lab Results 03/26/24 14:00: Group A Strep Rapid Negative 03/26/24 14:19: SARS-CoV-2 (PCR) Not detected, Influenza A Untype (PCR) Not dete cted, Influenza Type B (PCR) Not detected Orders (Tests/Meds): ED MEDICATIONS Discontinued Medications Generic Name Dose Route Start Last Admin Trade Name Freq PRN Reason Stop Dose Admin Acetaminophen 1,000 mg 03/26/24 14:14 03/26/24 14:32 Acetaminophen 500mg Tab PO 03/26/24 14:15 1,000 mg ONCE ONE Administration Albuterol/Ipratropium 3 ml 03/26/24 14:14 03/26/24 14:33 Ipratropium/Albuterol 3 Ml Neb IH 03/26/24 14:15 3 ml ONCE ONE Administration Ibuprofen 800 mg 03/26/24 14:14 03/26/24 14:32 Ibuprofen 400 Mg Tablet PO 03/26/24 14:15 800 mg ONCE ONE Administration Prednisone 60 mg 03/26/24 14:14 03/26/24 14:32 Prednisone 20mg Tab PO 03/26/24 14:15 60 mg ONCE ONE Administration ORDERS Category Date Time Status Rapid PCR Covid and Flu A/B Stat Lab 03/26/24 14:19 Completed Rapid Strep Scrn Group A [Strep Scrn Group A (Rapid)] Lab 03/26/24 14:00 Completed Stat Strep Screen Confirmation Stat Micro 03/26/24 14:00 Received Medical Decision Narrative: In summary patient is a 24-year-old male who presents to the emergency department for evaluation of cough sore throat and tight breathing. Patient is hemodynamically stable upon arrival, afebrile. Physical exam is remarkable for diaphoresis but patient has no erythema in the posterior pharynx no exudate no palpable lymph nodes and breath sounds are clear to equal bilaterally to the bases.. Differential diagnosis includes reactive airway disease versus viral or bacterial upper respiratory tract infection versus asthma etc. Initial workup will be conducted with respiratory swabs. Initial interventions include Tylenol Motrin DuoNeb and prednisone. Initial workup reviewed by me [hematologic labs are remarkable for... Imaging remarkable for... Urinalysis remarkable for]. U faviola repeat evaluation [patient had acceptable resolution of symptoms, had persistent pain for which additional interventions were conducted (describe interventions), tolerated p.o., was ambulatory, etc.]. Given this [patient is appropriate for discharge at this time and will be discharged with a prescription for... The case was discussed with hospital medicine regarding management and they will admit the patient their service for continued evaluation at this time... Etc.] Critical Care Critical Care Time Critical Care Time: No
--- NOTE | 2024-03-26 14:07 | PC.NURSE ---
MARLEN MOSS AT BEDSIDE
[2024-03-26 14:23] LABS: Coronavirus 19, PCR Not Detected (NotDetected); Influenza A, PCR Not Detected (NotDetected); Influenza B, PCR Not Detected (NotDetected)
[2024-03-26 14:27] LABS: Strep Scrn Group A (Rapid) Negative (Negative)
[2024-03-26 14:32] VITALS: BP 126/72; PULSE 80; RESP 17; O2SAT 98
[2024-03-26] MEDS: IBUPROFEN 400 MG TABLET 800 MG PO (14:32)
[2024-03-26] MEDS: predniSONE 20MG TAB 60 MG PO (14:32)
[2024-03-26] MEDS: ACETAMINOPHEN 500MG TAB 1000 MG PO (14:32)
[2024-03-26] MEDS: IPRATROPIUM/ALBUTEROL 3 ML NEB IH (14:33)
[2024-03-26 15:07] VITALS: BP 132/70; PULSE 68; RESP 20; TEMP 36.7; O2SAT 99
== END 2024-03-26 15:08 | disposition home or self-care (01) ==
PROVIDERS: Physician Assistant; Emergency Provider Emergency Medicine; PCP Internal Medicine
DX: J02.9 Acute pharyngitis, unspecified (principal); J45.909 Unspecified asthma, uncomplicated; R05.9 Cough, unspecified
CPT/HCPCS: 87430; 87636; 99283; J7620

== ENCOUNTER 2024-05-12 13:39 | Emergency (ER) | payer MEDICAID, SELFPAY ==
--- NOTE | 2024-05-12 14:04 | ED_ITS ---
Discharge Plan Disposition Patient Disposition: Home, Self-Care Condition: Good Prescriptions Prescriptions: New [id number] [Bromfed DM] 2-30-10 mg/5 mL syrup 5 ml PO Q4H PRN (Reason: sinus symptoms) Qty: 118 0RF ondansetron 4 mg tablet,disintegrating 4 mg PO QID PRN (Reason: nausea and vomiting) Qty: 10 0RF No Action diclofenac potassium 50 mg tablet 50 mg PO Q8H PRN (Reason: pain) Qty: 60 0RF ondansetron 4 mg tablet,disintegrating 4 mg PO Q8H PRN (Reason: nausea and vomiting) 4 Days Qty: 12 0RF benzonatate 100 mg capsule 100 mg PO BID PRN (Reason: cough) 5 Days Qty: 10 0RF amoxicillin 875 mg tablet 875 mg PO BID 10 Days Qty: 20 0RF meclizine 25 mg tablet 25 mg PO TID PRN (Reason: dizziness) Qty: 20 0RF prednisone 50 mg tablet 50 mg PO DAILY 5 Days Qty: 5 0RF Rx Instructions: Please begin 1 day after ED visit ondansetron 4 mg tablet,disintegrating 4 mg PO Q6H PRN (Reason: nausea and vomiting) 5 Days Qty: 20 0RF oxymetazoline 0.05 % spray,non-aerosol 2 spray intranasal BID PRN (Reason: nasal congestion) 3 Days Qty: 22 0RF prednisone 50 mg tablet 50 mg PO DAILY 5 Days Qty: 5 0RF albuterol sulfate 90 mcg/actuation HFA aerosol inhaler 1 inh inhalation Q4H PRN (Reason: shortness of breath or wheezing) Qty: 8.5 0RF benzonatate 100 mg capsule 100 mg PO TID PRN (Reason: cough) 5 Days Qty: 20 0RF ondansetron 4 mg tablet,disintegrating 4 mg PO Q6H PRN (Reason: nausea and vomiting) 5 Days Qty: 20 0RF ondansetron 4 mg tablet,disintegrating 4 mg PO Q8H PRN (Reason: nausea and vomiting) 4 Days Qty: 12 0RF amoxicillin 875 mg tablet 875 mg PO BID 10 Days Qty: 20 0RF Referrals Follow up/Referrals: Damaris Mcclellan MD [Primary Care Provider] - See instructions Activity Restrictions/Add. Instructions Additional Instructions/Restrictions: Follow-up with your PCP for any new or worsening symptoms. Return to ER for any worsening signs or symptoms as needed. Clinical Impressions Clinical Impression: Nausea vomiting and diarrhea Abdominal pain Qualifiers: Abdominal location: periumbilical Qualified Code(s): R10.33 - Periumbilical pain Stand Alone Forms Stand Alone Forms: Work/School Release Print Language Print Language: Algerian Discharge ED Provider: Dorina Cummings General Adult HPI <TIMOTHY Craig - Last Filed: 05/12/24 16:29> General Chief complaint: Upper Respiratory Infection Stated complaint: hot/cold flashes v/d Time Seen by Provider: 05/12/24 14:04 History of Present Illness HPI narrative: Patient presents for nausea vomiting diarrhea abdominal pain. Patient gives a 3-day history of nausea vomiting diarrhea subjective fever and umbilical abdominal pain. Patient states that his diarrhea is liquid stool but no hematochezia or melena noted. Patient denies shortness of breath chest pain cough headache chills hemoptysis hematemesis hematuria Related Data Previous Rx's ?Medication ?Instructions ?Recorded diclofenac potassium 50 mg tablet 50 mg PO Q8H PRN pain #60 tabs 11/29/22 ondansetron 4 mg disintegrating 4 mg PO Q8H PRN nausea and 07/05/23 tablet vomiting 4 days #12 tabs benzonatate 100 mg capsule 100 mg PO BID PRN cough 5 days #10 09/06/23 caps benzonatate 100 mg capsule 100 mg PO TID PRN cough 5 days #20 10/10/23 caps ondansetron 4 mg disintegrating 4 mg PO Q6H PRN nausea and 10/10/23 tablet vomiting 5 days #20 tabs amoxicillin 875 mg tablet 875 mg PO BID 10 days #20 tabs 01/13/24 ondansetron 4 mg disintegrating 4 mg PO Q8H PRN nausea and 01/13/24 tablet vomiting 4 days #12 tabs amoxicillin 875 mg tablet 875 mg PO BID 10 days #20 tabs 02/24/24 meclizine 25 mg tablet 25 mg PO TID PRN dizziness #20 tabs 02/24/24 ondansetron 4 mg disintegrating 4 mg PO Q6H PRN nausea and 02/24/24 tablet vomiting 5 days #20 tabs oxymetazoline 0.05 % nasal spray 2 spray intranasal BID PRN nasal 02/24/24 congestion 3 days #22 mL prednisone 50 mg tablet 50 mg PO DAILY 5 days #5 tabs 02/24/24 albuterol sulfate 90 mcg/actuation 1 inh inhalation Q4H PRN shortness 03/26/24 aerosol inhaler of breath or wheezing #8.5 grams prednisone 50 mg tablet 50 mg PO DAILY 5 days #5 tabs 03/26/24 [id number] 5 ml PO Q4H PRN sinus symptoms 05/12/24 2 mg-30 mg-10 mg/5 mL oral syrup #118 mL (Bromfed DM) ondansetron 4 mg disintegrating 4 mg PO QID PRN nausea and 05/12/24 tablet vomiting #10 tabs Allergies Allergy/AdvReac Type Severity Reaction Status Date / Time No Known Drug Allergies AdvReac Unknown Verified 10/24/23 14:16 allergy reaction PFSH <TIMOTHY Craig - Last Filed: 05/12/24 16:29> [facility] Disclaimer: The information contained in this section may have been updated after the patient was seen, as this information can be updated by other users. Social History Smoking Status: Never smoker alcohol intake: former current occupational status: employed Travel in the last 8 weeks: Inside the [place] <TIMOTHY Craig - Last Filed: 05/12/24 16:29> ROS Obtained: Yes Systems reviewed as appropriate & no additional complaints except as documented Physical Exam <TIMOTHY Craig - Last Filed: 05/12/24 16:29> General General appearance: alert and in no apparent distress Eye Eye exam: Absent EOMI ENT ENT exam: Present normal exam, normal oropharynx and mucous membranes moist Neck Neck exam: Present normal inspection; Absent tenderness or lymphadenopathy Respiratory Respiratory exam: Present normal lung sounds bilaterally; Absent respiratory distress or wheezes Cardiovascular Cardiovascular exam: Present regular rate, normal rhythm and normal heart sounds Abdominal Exam Abdominal exam: Present soft, tenderness (Very mild tenderness to palpation around the umbilicus without rebound or guarding or rigidity) and normal bowel sounds; Absent guarding or rebound Neurological Exam Neurological exam: Present alert and oriented X3 Medical Decision Making <TIMOTHY Craig - Last Filed: 05/12/24 16:29> Medical Records Medical records reviewed: Yes I reviewed the patient's medical records. Tl Inquiry Pt receiving controlled substance: No Vital Signs: 05/12/24 14:05 05/12/24 14:30 05/12/24 15:00 Temperature 98.6 F Temperature Source Oral Pulse Rate 98 H 75 Pulse Rate [Left Radial] 94 H Respiratory Rate 20 Blood Pressure 113/75 109/70 L Blood Pressure [Right Arm] 137/81 Blood Pressure Mean 85 78 Blood Pressure Mean [Right Arm] 99 02 Sat by Pulse Oximetry 98 97 97 Oxygen Delivery Method Room Air 05/12/24 15:30 05/12/24 16:37 Temperature 98.6 F Temperature Source Pulse Rate 71 72 Pulse Rate [Left Radial] Respiratory Rate 18 Blood Pressure 113/76 110/68 Blood Pressure [Right Arm] Blood Pressure Mean 88 Blood Pressure Mean [Right Arm] 02 Sat by Pulse Oximetry 97 Oxygen Delivery Method Room Air Lab Data Lab results reviewed: Yes I reviewed the patient's lab results. Lab Results 05/12/24 14:42: WBC 8.6, RBC 5.58, Hgb 15.7, Hct 46.9, MCV 84.1, MCH 28.2, MCHC 33.6, RDW 13.2, Plt Count 318, MPV 8.1, Neut % (Auto) 68.6, Lymph % (Auto) 20.3, Wetzel % (Auto) 5.2, Eos % (Auto) 4.6, Baso % (Auto) 1.4, Neut # (Auto) 5.9, Lymph # (Auto) 1.7, Wetzel # (Auto) 0.5, Eos # (Auto) 0.4, Baso # (Auto) 0.1, Sodium 142, Potassium 4.0, Chloride 105, Carbon Dioxide 29, Anion Gap 12.0, BUN 7 L, Creatinine 0.80, Estimated Creat Clear 235, Estimated GFR 120, Est GFR ( Amer) 145, Glucose 95, Lactate 1.4, Calcium 9.0, Magnesium 2.0, Total Bilirubin 1.1, AST 33, ALT 27, Alkaline Phosphatase 47, Total Protein 8.1, Albumin 4.8, G lobulin 3.3 H, Albumin/Globulin Ratio 1.5, Lipase 72 05/12/24 14:42 05/12/24 14:42 Orders (Tests/Meds): ED MEDICATIONS Discontinued Medications Generic Name Dose Route Start Last Admin Trade Name Rhianna PRN Reason Stop Dose Admin Acetaminophen 1,000 mg 05/12/24 14:09 05/12/24 14:40 Acetaminophen 1,000mg/100ml Vial IV 05/12/24 14:10 1,000 mg ONCE ONE Administration Lactated Ringer's 1,000 mls @ 999 mls/hr 05/12/24 14:09 05/12/24 14:40 Lactated Ringer's 1000 Ml Bag IV 05/12/24 15:09 999 mls/hr .Q1H1M ONE Administration Iopamidol 75 ml 05/12/24 15:14 05/12/24 15:15 Iopamidol-370 (76%);100ml Bottle IV 05/12/24 15:15 75 ml ONCE ONE Administration Ondansetron HCl 4 mg 05/12/24 14:09 05/12/24 14:40 Ondansetron 4mg/2ml Vial IV 05/12/24 14:10 4 mg ONCE ONE Administration Sodium Chloride 10 ml 05/12/24 15:14 05/12/24 15:14 Sodium Chloride 0.9% 10ml Syr (Rad Only) IV 05/12/24 15:15 10 ml ONCE ONE Administration ORDERS Category Date Time Status CT abdomen pelvis w con Stat Cat Scan 05/12/24 14:09 Completed CBC w/Auto Diff [Complete Blood Count Auto Diff] Stat Lab 05/12/24 14:42 Completed CMP [Comprehensive Metabolic Panel] Stat Lab 05/12/24 14:42 Completed Lactic Acid Stat Lab 05/12/24 14:42 Completed Lipase Stat Lab 05/12/24 14:42 Completed Magnesium Stat Lab 05/12/24 14:42 Completed Medical Decision Narrative: In summary patient is a 24-year-old male who presents for nausea vomiting diarrhea and umbilical abdominal pain who presents to the emergency department for evaluation of nausea vomiting diarrhea abdominal pain. Patient is hemodynamically stable upon arrival, febrile. Physical exam is remarkable for mild umbilical abdominal tenderness to deep palpation with normal bowel sounds without rigidity guarding or rebound tenderness. Differential diagnosis includes gastroenteritis versus pancreatitis versus appendicitis etc. Initial workup will be conducted with hematologic labs CT scan abdomen pelvis. Initial interventions include crystalloid bolus Tylenol Zofran. Initial workup reviewed by me and his hematologic labs are nonactionable and my informal septation of the CT scan abdomen pelvis shows no acute processes.. Upon repeat evaluation had mild improvement in his symptoms after initial intervention. Given this we have ruled out any serious or life-threatening conditions and patient is appropriate for discharge with prescription for Bromfed and Zofran with strict return precautions. <Ulises Coombs MD - Last Filed: 05/12/24 16:49> Vital Signs: 05/12/24 14:05 05/12/24 14:30 05/12/24 15:00 Temperature 98.6 F Temperature Source Oral Pulse Rate 98 H 75 Pulse Rate [Left Radial] 94 H Respiratory Rate 20 Blood Pressure 113/75 109/70 L Blood Pressure [Right Arm] 137/81 Blood Pressure Mean 85 78 Blood Pressure Mean [Right Arm] 99 02 Sat by Pulse Oximetry 98 97 97 Oxygen Delivery Method Room Air 05/12/24 15:30 05/12/24 16:37 Temperature 98.6 F Temperature Source Pulse Rate 71 72 Pulse Rate [Left Radial] Respiratory Rate 18 Blood Pressure 113/76 110/68 Blood Pressure [Right Arm] Blood Pressure Mean 88 Blood Pressure Mean [Right Arm] 02 Sat by Pulse Oximetry 97 Oxygen Delivery Method Room Air Lab Data Lab Results 05/12/24 14:42: WBC 8.6, RBC 5.58, Hgb 15.7, Hct 46.9, MCV 84.1, MCH 28.2, MCHC 33.6, RDW 13.2, Plt Count 318, MPV 8.1, Neut % (Auto) 68.6, Lymph % (Auto) 20.3, Wetzel % (Auto) 5.2, Eos % (Auto) 4.6, Baso % (Auto) 1.4, Neut # (Auto) 5.9, Lymph # (Auto) 1.7, Wetzel # (Auto) 0.5, Eos # (Auto) 0.4, Baso # (Auto) 0.1, Sodium 142, Potassium 4.0, Chloride 105, Carbon Dioxide 29, Anion Gap 12.0, BUN 7 L, Creatinine 0.80, Estimated Creat Clear 235, Estimated GFR 120, Est GFR ( Amer) 145, Glucose 95, Lactate 1.4, Calcium 9.0, Magnesium 2.0, Total Bilirubin 1.1, AST 33, ALT 27, Alkaline Phosphatase 47, Total Protein 8.1, Albumin 4.8, G lobulin 3.3 H, Albumin/Globulin Ratio 1.5, Lipase 72 Orders (Tests/Meds): ED MEDICATIONS Discontinued Medications Generic Name Dose Route Start Last Admin Trade Name Freq PRN Reason Stop Dose Admin Acetaminophen 1,000 mg 05/12/24 14:09 05/12/24 14:40 Acetaminophen 1,000mg/100ml Vial IV 05/12/24 14:10 1,000 mg ONCE ONE Administration Lactated Ringer's 1,000 mls @ 999 mls/hr 05/12/24 14:09 05/12/24 14:40 Lactated Ringer's 1000 Ml Bag IV 05/12/24 15:09 999 mls/hr .Q1H1M ONE Administration Iopamidol 75 ml 05/12/24 15:14 05/12/24 15:15 Iopamidol-370 (76%);100ml Bottle IV 05/12/24 15:15 75 ml ONCE ONE Administration Ondansetron HCl 4 mg 05/12/24 14:09 05/12/24 14:40 Ondansetron 4mg/2ml Vial IV 05/12/24 14:10 4 mg ONCE ONE Administration Sodium Chloride 10 ml 05/12/24 15:14 05/12/24 15:14 Sodium Chloride 0.9% 10ml Syr (Rad Only) IV 05/12/24 15:15 10 ml ONCE ONE Administration ORDERS Category Date Time Status CT abdomen pelvis w con Stat Cat Scan 05/12/24 14:09 Completed CBC w/Auto Diff [Complete Blood Count Auto Diff] Stat Lab 05/12/24 14:42 Completed CMP [Comprehensive Metabolic Panel] Stat Lab 05/12/24 14:42 Completed Lactic Acid Stat Lab 05/12/24 14:42 Completed Lipase Stat Lab 05/12/24 14:42 Completed Magnesium Stat Lab 05/12/24 14:42 Completed Medical Decision Narrative: In summary patient is a 24-year-old male who presents for nausea vomiting diarrhea and umbilical abdominal pain who presents to the emergency department for evaluation of nausea vomiting diarrhea abdominal pain. Patient is hemodynamically stable upon arrival, febrile. Physical exam is remarkable for mild umbilical abdominal tenderness to deep palpation with normal bowel sounds without rigidity guarding or rebound tenderness. Differential diagnosis includes gastroenteritis versus pancreatitis versus appendicitis etc. Initial workup will be conducted with hematologic labs CT scan abdomen pelvis. Initial interventions include crystalloid bolus Tylenol Zofran. Initial workup reviewed by me and his hematologic labs are nonactionable and my informal septation of the CT scan abdomen pelvis shows no acute processes.. Upon repeat evaluation had mild improvement in his symptoms after initial intervention. Given this we have ruled out any serious or life-threatening conditions and patient is appropriate for discharge with prescription for Bromfed and Zofran with strict return precautions. I was consulted by the JOEY, and we discussed the complexity of the problems being addressed. I approved the treatment and management plan for this patient's care in the emergency department, thus performing a substantive portion of the medical decision making. Ulises Coombs MD Critical Care <TIMOTHY Craig - Last Filed: 05/12/24 16:29> Critical Care Time Critical Care Time: No
[2024-05-12 14:05] VITALS: BP 137/81; PULSE 94; RESP 20; TEMP 37; O2SAT 98; BMI 34.5
--- NOTE | 2024-05-12 14:09 | CT_ITS ---
FINAL REPORT CLINICAL HISTORY: Nausea vomiting abdominal pain COMPARISON: None FINDINGS: CT OF THE ABDOMEN AND PELVIS WITH CONTRAST Axial CT images of the abdomen and pelvis were obtained after the administration of IV contrast. Coronal reformatted images were also obtained and reviewed.This study was performed with techniques to keep radiation doses as low as reasonably achievable (ALARA). Individualized dose reduction techniques using automated exposure control or adjustment of mA and/or kV according to the patient''s size were employed. Abdomen: The lung bases are clear. The heart is normal in size. The liver has an unremarkable appearance, without evidence of mass or biliary ductal dilatation. The spleen is unremarkable. No adrenal mass is present. The pancreas has an unremarkable appearance. The kidneys are normal, without evidence of mass or hydronephrosis. The aorta is normal in caliber. There is no free fluid or adenopathy. No mass or abnormal fluid collection is seen. There is a small umbilical hernia containing fat. Pelvis: The appendix is normal. The urinary bladder is unremarkable. No inflammatory process is seen. There is no evidence of mass or adenopathy. There is no evidence of bowel obstruction. IMPRESSION: No evidence of acute intra-abdominal process. Reviewed, Interpreted and Dictated by Deep Kinsey III, MD Transcribed by Nirmala Fernandez Authenticated and [facility]
[2024-05-12 14:30] VITALS: BP 113/75; PULSE 98; O2SAT 97
[2024-05-12] MEDS: ONDANSETRON 4MG/2ML VIAL 4 MG IV (14:40)
[2024-05-12] MEDS: ACETAMINOPHEN 1,000MG/100ML VIAL 1000 MG IV (14:40)
[2024-05-12] MEDS: LACTATED RINGERS 1000ML 1,000 ML 999 ML IV (14:40)
[2024-05-12 14:51] LABS: Basophils # 0.1 K/mm3 (0-0.2); Basophils % 1.4 % (0.1-2.0); Eosinophils # 0.4 K/mm3 (0.0-0.4); Eosinophils % 4.6 % (0.1-12.0); Hematocrit 46.9 % (42.0-52.0); Hemoglobin 15.7 g/dL (14.1-18.0); Lymphocytes # 1.7 K/mm3 (0.7-4.5); Lymphocytes % 20.3 % (10-50); Mean Corpuscular HGB Conc 33.6 g/dL (31.8-35.4); Mean Corpuscular Hemoglobin 28.2 pg (27.0-31.2); Mean Corpuscular Volume 84.1 fl (80-94); Mean Platelet Volume 8.1 fl (7.4-10.4); Monocytes # 0.5 K/mm3 (0.1-1.0); Monocytes % 5.2 % (1.7-9.3); Neutrophils # 5.9 K/mm3 (1.8-7.8); Neutrophils % 68.6 % (37.0-80.0); Platelet Count 318 K/mm3 (142-424); Red Blood Count 5.58 M/mm3 (4.60-6.20); Red Cell Distribution Width 13.2 % (11.5-17.5); White Blood Count 8.6 K/mm3 (4.8-10.8)
[2024-05-12 14:55] LABS: Albumin Level 4.8 g/dl (3.5-5.0); Chloride 105 mmol/L (98-107)
[2024-05-12 14:56] LABS: Sodium 142 mmol/L (136-145)
[2024-05-12 14:58] LABS: Alanine Aminotransferase 27 U/L (12-78); Aspartate Amino Transferase 33 U/L (17-59); Blood Urea Nitrogen 7 mg/dl (9-20); Carbon Dioxide 29 mmol/L (22.0-30.0); Creatinine Clearance Estimated 235 mL/min (50-200); Estimated Glomerular Filt Rate 120 ml/min (>60); GFR (African American) 145 ML/MIN (>60)
[2024-05-12 14:59] LABS: Albumin/Globulin Ratio 1.5 (1.1-1.8); Alkaline Phosphatase 47 U/L (38-126); Bilirubin,Total 1.1 mg/dl (0.2-1.3); Globulin 3.3 g/dL (1.3-3.2); Glucose 95 mg/dl (74-100); Lipase 72 U/L (23-300); Total Protein,Serum 8.1 g/dl (6.3-8.2)
[2024-05-12 15:00] VITALS: BP 109/70; PULSE 75; O2SAT 97
[2024-05-12 15:06] LABS: Lactic Acid 1.4 mmol/L (0.7-2.1)
[2024-05-12] MEDS: SODIUM CHLORIDE 0.9% 10ML SYR (RAD ONLY) 10 ML IV (15:14)
[2024-05-12] MEDS: IOPAMIDOL-370 (76%);100ML BOTTLE 75 ML IV (15:15)
[2024-05-12 15:30] VITALS: BP 113/76; PULSE 71; O2SAT 97
[2024-05-12 16:37] VITALS: BP 110/68; PULSE 72; RESP 18; TEMP 37; O2SAT 98
== END 2024-05-12 16:37 | disposition home or self-care (01) ==
PROVIDERS: Physician Assistant; Emergency Provider Emergency Medicine; PCP Internal Medicine
DX: R10.33 Periumbilical pain (principal); R11.2 Nausea with vomiting, unspecified; R19.7 Diarrhea, unspecified; R50.9 Fever, unspecified
CPT/HCPCS: 74177; 80053; 83605; 83690; 83735; 85025; 96361; 96374; 96375; 99284; J0131; J2405; J7120; Q9967